=== PATIENT | female | born 1955 | race Hispanic/Latino ===

== ENCOUNTER → 2022-01-27 | Outpatient (CLI) | payer OTHER ==
[~2022-01-27] MED LIST: BARACLUDE0.5 MG PO; GADOBENATE DIMEGLUMINE 1 ML IV ONE
[2022-01-27 10:23] LABS: CREATININE, SERUM 0.75 mg/dL (0.57-1.11)
== END ==
LOC: MRI 09:34
PROVIDERS: ATTEND Internal Medicine Gastroenterology
DX: B18.1 Chronic viral hepatitis B without delta-agent (principal)
CPT/HCPCS: 36415; 74183; 82565; 84520; A9577

== ENCOUNTER → 2022-07-17 | Outpatient (CLI) | payer OTHER ==
[~2022-07-17] MED LIST changes: -GADOBENATE DIMEGLUMINE 1 ML IV ONE
== END ==
LOC: US 07:24
PROVIDERS: ATTEND Internal Medicine Gastroenterology
DX: B18.1 Chronic viral hepatitis B without delta-agent (principal)
CPT/HCPCS: 76700